=== PATIENT | male | born 1965 ===

== ENCOUNTER 2016-12-25 17:41 | Emergency (ER) | payer SELFPAY ==
[2016-12-25 18:58] VITALS: BP 101/75
== END 2016-12-25 19:00 | disposition left against medical advice (07) ==
LOC: ED 17:41
DX: R07.9 Chest pain, unspecified (principal); Z53.21 Procedure and treatment not carried out due to patient leaving prior to being seen by health care provider
CPT/HCPCS: 93005; 93010